=== PATIENT | female | born 1970 | race African-American/Black ===

== ENCOUNTER 2020-02-04 10:44 | Emergency (ER) | payer BC, MEDICAID, SELFPAY ==
[2020-02-04 10:56] VITALS: BP 123/76; PULSE 85; RESP 16; TEMP 35.9; O2SAT 100
--- NOTE | 2020-02-04 11:28 | ED.URI ---
HPI - URI/Sore Throat General Chief Complaint: Upper Respiratory Infection Stated Complaint: Headache Time Seen by Provider: 02/04/20 11:19 Source: patient and RN notes reviewed Mode of arrival: ambulatory Limitations: no limitations History of Present Illness HPI Narrative: Patient presents today with a 2-day history of upper arch dental pain, bilateral maxillary and frontal sinus pain and pressure, as well as a frontal headache. Patient saw her dentist today and was told that her teeth were fine. They did do x-rays at that time and patient was told she did have a sinus infection and that she needed to come to urgent care for some antibiotics. Denies any recent antibiotic use. She has tried no medication for symptoms prior to arrival. MD elicited complaint: sinus pain Related Data Home Medications Medication Instructions Recorded Confirmed estradiol 02/04/20 estradiol VAGINAL 02/04/20 Allergies Allergy/AdvReac Type Severity Reaction Status Date / Time No Known Allergies Allergy Verified 02/04/20 11:04 Review of Systems Review of Systems: Narrative: CONSTITUTIONAL: Denies body aches, fever, chills, or sweats. EYES: Denies visual changes, redness, or discharge. Watery eyes ENT: Denies rhinorrhea, congestion, sore throat, or otalgia.+ Sinus pain, dental pain CARDIOVASCULAR: Denies chest pain, palpitations, or edema. RESPIRATORY: Denies cough or dyspnea. GASTROINTESTINAL: Denies abdominal pain, nausea, vomiting, or diarrhea. GENITOURINARY: Denies dysuria or hematuria. SKIN: Denies rash, itching, or wounds. MUSCULOSKELETAL: Denies back pain, joint pain, or myalgia. NEUROLOGIC: Denies numbness, tingling, or weakness.+ Headache PSYCH: Denies depression or anxiety. PMFSH Social History Social History Gender identity (if verbalized by the patient): Female Comments At time of signature, I have reviewed and agree with nursing past medical, surgical, social and family history unless otherwise noted. Please see nursing chart for further information. There is no relevant family history pertinent to the presenting complaint Exam Narrative: Exam Narrative: GENERAL: Well-appearing, well-nourished, and in no acute distress. HEAD: Normocephalic, atraumatic. EYES: EOMI. No redness or drainage. Conjunctivae normal. ENT: Mucous membranes pink and moist. Nares clear. No rhinorrhea. TMs normal bilaterally. Throat normal. Uvula midline. Tenderness to bilateral frontal and maxillary sinuses. Bilateral erythematous and swollen nasal turbinates. NECK: Normal AROM. Supple. No lymphadenopathy. CHEST: No respiratory distress. Clear to auscultation. HEART: Regular rate and rhythm. No murmur appreciated. Normal peripheral pulses. EXTREMITIES: Normal range of motion. No edema. SKIN: Warm, dry, no rash. NEURO: No focal deficits. Alert and oriented x3. Gait steady. PSYCH: Normal affect. No signs of depression or anxiety. Course Course Emergency Course: Yes patient did see her dentist today and had x-rays done that included her sinuses, I feel it indicated to treat her with antibiotics at this time. Vital Signs Vital signs: Vital Signs Temperature 96.7 F L 02/04/20 10:56 Pulse Rate 85 02/04/20 10:56 Respiratory Rate 16 02/04/20 10:56 Blood Pressure 123/76 02/04/20 10:56 Pulse Oximetry 100 02/04/20 10:56 Temperature 96.7 F L 02/04/20 10:56 Pulse Rate 85 02/04/20 10:56 Respiratory Rate 16 02/04/20 10:56 Blood Pressure 123/76 02/04/20 10:56 Pulse Oximetry 100 02/04/20 10:56 Reviewed. Pt has been instructed to follow up with her PCP regarding her elevated blood pressure today. MDM - URI/Sore Throat Differential Diagnosis Differential diagnosis: Likely upper respiratory infection, sinusitis and viral infection Critical Care Time Critical Care Time Critical Care Time: No Discharge Plan Discharge Clinical Impression: Sinusitis Qualifiers: Sinusitis location: unspecified locatio
== END 2020-02-04 11:35 | disposition home or self-care (01) ==
PROVIDERS: Emergency Provider Nurse Practitioner; PCP Nurse Practitioner Family
DX: J01.90 Acute sinusitis, unspecified (principal)
CPT/HCPCS: 99213; G0463

== ENCOUNTER 2020-04-17 08:12 | Outpatient (CLI) | payer BC, MEDICAID, SELFPAY ==
--- NOTE | 2020-04-17 | ECHO_ITS ---
Patient Info Name: Tamra Urias Age: 50 years : 1970 Gender: Female Ht: 68 in Wt: 210 lbs BSA: 2.17 m2 HR: 47 bpm BP: 138 / 91 mmHg Technical Quality: Good Exam Date: 04/17/2020 8:39 AM Exam Location: [facility] Patient Status: Outpatient Admit Date: 04/17/2020 Staff Ordering Physician: LuxAlexis MD ([place]) Transit Planning Manager: Kyle Sheets, RDCS, RT Attending Provider: RichardAlexis MD ([place]) Referring Physician: Lux HELM; Exam Type: CA echo doppler color flow Study Info Indications R06.02 - Shortness of breath Complete two-dimensional, color flow and Doppler transthoracic echocardiogram is performed. Summary 1. Left ventricular chamber dimension is normal. 2. Left ventricular systolic function is normal, estimated at 60-65%. 3. There is mildly increased left ventricular wall thickness. 4. The left ventricular diastolic function is normal. 5. There is trace mitral valve regurgitation. Left Ventricle Left ventricular chamber dimension is normal. Left ventricular systolic function is normal, estimated at 60-65%. There is mildly increased left ventricular wall thickness. Left ventricular septal wall motion is normal. The left ventricular diastolic function is normal. Right Ventricle Right ventricular chamber dimension is normal. Right ventricular systolic function is normal. Left Atria Left atrial chamber dimension is normal. Right Atria Right atrial chamber dimension is normal. Aortic Valve The aortic valve is trileaflet. There is no aortic valve sclerosis. There is no aortic valve stenosis. There is no aortic valve regurgitation. Pulmonic Valve The pulmonic valve is normal. There is no pulmonic valve stenosis. There is no pulmonic regurgitation. Mitral Valve The mitral valve has normal leaflets. There is no mitral valve stenosis. There is trace mitral valve regurgitation. Tricuspid Valve The tricuspid valve leaflets are normal. There is no significant tricuspid valve stenosis. There is no tricuspid valve regurgitation. Pericardium/Pleural The pericardium appears normal. There is no pericardial effusion. Inferior Vena Cava Dilated inferior vena cava with <50% collapse upon inspiration consistent with elevated right atrial pressure, 15 mmHg. Aorta The aortic root size at the sinus of Valsalva is normal. The prox ascending aorta size is normal. Left Ventricular Outflow Tract Name Value Normal LVOT 2D LVOT Diameter 2.0 cm LVOT Doppler LVOT Peak Gradient 4 mmHg LVOT Mean Gradient 2 mmHg LVOT VTI 23 cm LVOT VTI/AV VTI Ratio 0.7 LVOT Stroke Volume 72 ml LVOT CO 3.4 l/min LVOT CI 1.6 l/min/m2 Mitral Valve Name Value Normal EDI Bridgespl
== END 2020-04-17 08:13 | disposition home or self-care (01) ==
PROVIDERS: PCP Nurse Practitioner Family; Visit Provider Internal Medicine
DX: R06.09 Other forms of dyspnea (principal)
CPT/HCPCS: 93306